=== PATIENT | female | born 1990 | race Caucasian/White ===

== ENCOUNTER 2022-05-06 09:21 | Emergency (ER) | payer MEDICAID ==
[~2022-05-06] VITALS: Ht 152.4 cm; Wt 68.0 kg
[2022-05-06 09:21] VITALS: BP_SYST 123
--- NOTE | 2022-05-06 09:21 | NUR ---
BROUGHT IN BY [facility]. PLACED IN BED #1 AND TRIAGED. REPORT GIVEN TO NURSE
--- NOTE | 2022-05-06 09:22 | NUR ---
patient in bed [id number] speech clear and coherent, move all extremities, c/o chest pain radiates to right chest area and felt weaness to legs. place on cardiac mopnitor with sinus tachy.
--- NOTE | 2022-05-06 09:25 | NUR ---
EDP AT BEDSIDE FOR INITIAL ASSESSMENT.
[2022-05-06] MEDS ORDERED: NACL 0.9% 1,000 ML IV ONE ×3 (09:30→14:30)
[2022-05-06] MEDS ORDERED: ASPIRIN 81 MG TAB.CHEW PO ONE (09:30)
[2022-05-06 09:51] LABS: BASOPHILS % (AUTO) 0.2 % (0.0-2.0); EOSINOPHILS % (AUTO) 0.2 % (0.0-4.0); HEMOGLOBIN 14.6 g/dL (12.0-16.0); LYMPHOCYTES # (AUTO) 0.5 K/uL (1.0-5.5); LYMPHOCYTES % (AUTO) 4.3 % (20.5-51.5); MEAN CORPUSCULAR HEMOGLOBIN 33 pg (27-31); MEAN CORPUSCULAR HGB CONC 34 % (32-36); MEAN CORPUSCULAR VOLUME 97 fL (79.0-98.0); MONOCYTES # (AUTO) 0.9 K/uL (0.0-1.0); NEUTROPHILS # (AUTO) 11.1 K/uL (1.8-7.7); NEUTROPHILS % (AUTO) 88.3 % (40.0-70.0); PLATELET COUNT (AUTO) 92 K/uL (130-430); RED BLOOD CELL COUNT(AUTO) 4.43 MIL/uL (4.2-6.2); RED CELL DISTRIBUTION WIDTH 14.1 % (9.0-15.0); WHITE BLOOD COUNT (AUTO) 12.6 K/uL (4.8-10.8)
[2022-05-06] MEDS ORDERED: LORazepam 2 MG/ML VIAL IVP ONE ×2 (10:00→14:30)
[2022-05-06 10:12] LABS: CALCIUM 7.7 mg/dL (8.4-11.0); CHLORIDE 90 mmol/L (98-107); CREATININE 1.54 mg/dL (0.55-1.30); GLUCOSE 134 mg/dL (70-99); UREA NITROGEN, BLOOD 12 mg/dL (8-21)
[2022-05-06] MEDS ORDERED: PROCHLORPERAZINE EDISYLATE 10 MG/2 ML VIAL IVP ONE (10:15)
[2022-05-06] MEDS ORDERED: BENZTROPINE MESYLATE 2 MG/ 2 ML AMP IVP ONE (10:15)
[2022-05-06] MEDS ORDERED: MAG HYDROX/AL HYDROX/SIMETH 30 ML, LIDOCAINE VISCOUS 2% 15ML (PO) 15 ML, DICYCLOMINE HC... PO ONE ×3 (10:15)
[2022-05-06 10:25] LABS: ALANINE AMINOTRANSFERASE 53 U/L (12-78); ALBUMIN 2.6 g/dL (3.4-4.8); ANION GAP 13 (5-15); ASPARTATE AMINOTRANSFERASE 79 U/L (10-37); THYROID STIMULATING HORMONE 0.85 uIu/mL (0.34-4.82); TOTAL BILIRUBIN 1.1 mg/dL (0.0-1.0)
[2022-05-06 10:26] LABS: GFR AFRICAN AMERICAN 51 mL/min (>90); HCG,QUANTITATIVE 2 mIU/ML (0-6)
[2022-05-06 10:30] LABS: BILIRUBIN,URINE NEGATIVE (NEGATIVE); BLOOD, URINE 1+ (NEGATIVE); CLARITY/URINE CLOUDY (CLEAR); COLOR,URINE YELLOW (YELLOW); GLUCOSE,URINE NEGATIVE (NEGATIVE); KETONES,URINE NEGATIVE (NEGATIVE); LEUKOCYTE ESTERASE ,URINE 2+ (NEGATIVE); NITRITE, URINE NEGATIVE (NEGATIVE); PROTEIN URINE 2+ (NEGATIVE); UROBILINOGEN,URINE 0.2 (0.2-1.0)
[2022-05-06 10:42] LABS: BACTERIA,URINE MANY /HPF (None Seen); WBC,URINE 20-50 /HPF (0-3)
[2022-05-06 10:43] LABS: MUCUS,URINE None Seen /LPF (None Seen)
[2022-05-06 10:45] LABS: BARBITURATE, URINE NEGATIVE (NEG <=200); BENZODIAZEPINE, URINE NEGATIVE (NEG <=150); CANNABINOID, URINE NEGATIVE (NEG <=50); COCAINE, URINE POSITIVE (NEG <=150); METHAMPHETAMINES SCREEN,URINE NEGATIVE (NEG <=500); OPIATE, URINE NEGATIVE (NEG <=100); PHENCYCLIDINE SCREEN,URINE NEGATIVE (NEG <=25); UR TRICYCLIC ANTIDEPRESSANTS NEGATIVE (NEG <=300); URINE AMPHETAMINE NEGATIVE (NEG <=500); URINE METHADONE NEGATIVE (NEG <=200); URINE OXYCODONE SCREEN NEGATIVE (NEG <=100); URINE PROPOXYPHENE SCREEN NEGATIVE (NEG <=300)
[2022-05-06] MEDS ORDERED: iohexoL 350 mgI/mL, 100 ML INFUS..BTL IV ONE (11:32)
[2022-05-06] MEDS ORDERED: cefTRIAXone 1 GM in D5W 50 ML IV ONE (11:45)
--- NOTE | 2022-05-06 11:51 | NUR ---
patient taken to ct scan.
[2022-05-06] MEDS ORDERED: cefTRIAXone 1 GM VIAL ONE (12:37)
[2022-05-06] MEDS ORDERED: LORazepam 2 MG/ML VIAL ONE (12:52)
[2022-05-06] MEDS ORDERED: PROCHLORPERAZINE EDISYLATE 10 MG/2 ML VIAL ONE (12:57)
[2022-05-06] MEDS ORDERED: BENZTROPINE MESYLATE 2 MG/ 2 ML AMP ONE (12:58)
[2022-05-06] MEDS ORDERED: LIDOCAINE VISCOUS 2%, 15 ML UDC ONE (13:00)
[2022-05-06] MEDS ORDERED: DICYCLOMINE HCL 20 MG/2 ML AMP IM ONE (13:00)
[2022-05-06] MEDS ORDERED: MAG-AL HYDROX/SIMETH 30 ML UDC ONE (13:00)
[2022-05-06] MEDS ORDERED: DICYCLOMINE HCL 10 MG/5 ML SOLUTION ONE (13:06)
[2022-05-06] MEDS ORDERED: KCL 10 mEq in 50 mL (PREMIX) 50 ML IV ONE (13:30)
[2022-05-06] MEDS ORDERED: POTASSIUM CHLORIDE 20 MEQ/PKT PACKET PO ONE (13:30)
[2022-05-06] MEDS ORDERED: SULF1TAB48 PO (14:54)
[2022-05-06] MEDS ORDERED: OMEP40CA20 PO (14:57)
--- NOTE | 2022-05-06 16:16 | NUR ---
Patient given written and verbal discharge instructions and verbalizes understanding. ER MD discussed with patient the results and treatment provided. Patient in stable condition. ID arm band removed. IV catheter removed intact and dressing applied, no active bleeding. Rx of bactrim given. Patient educated on pain management and to follow up with PMD. Pain Scale 0. Opportunity for questions provided and answered. Medication side effect fact sheet provided.
--- NOTE | 2022-05-07 12:57 | NUR ---
REPORT RECEIVED FROM LAB FOR POSITIVE BLOOD CULTURE: GRAM NEGATIVE RODS. CONSULTED WITH ER DR. DIAZ ON SHIFT WHO REVIEWED PT'S CHART. PT DID RECEIVE ROCEPHIN IN THE ER AND WAS SENT HOME WITH RX OF BACTRIM. PER ER DR. DIAZ PT IS COVERED .NO FURTHER ACTION REQUIRED
== END 2022-05-06 16:16 | disposition home or self-care (01) ==
LOC: SED 09:21
DX: K21.00 Gastro-esophageal reflux disease with esophagitis, without bleeding (principal); N10 Acute pyelonephritis; F14.10 Cocaine abuse, uncomplicated; F10.10 Alcohol abuse, uncomplicated; E87.6 Hypokalemia; N17.9 Acute kidney failure, unspecified; R07.89 Other chest pain; R06.02 Shortness of breath; Z79.899 Other long term (current) drug therapy; Y90.6 Blood alcohol level of 120-199 mg/100 ml
CPT/HCPCS: 99285; 96365; 71275; 96375; 71045; 96361; 96367; 80307; 80053; 84702; 83880; 84443; 85025; 85379; 87040; 87086; 84484; 36415; 93005; 96376; 83605; 81000; 76376; Q9967; J2001; J0515; J0696; J2060; J3480; J0780; J7030; J0500